=== PATIENT | female | born 1935 | race Hispanic/Latino ===

== ENCOUNTER 2017-12-23 16:52 | Inpatient (IN) | payer MEDICARE ==
[2017-12-23] MEDS ORDERED: SODIUM CHLORIDE FLUSH SYRINGE 10 ML IV PRN (17:01)
[2017-12-23 20:37] LABS: BUN/Creatinine Ratio 13; Blood Urea Nitrogen 10 mg/dL (7-17); Hemolysis Index 0
[2017-12-23 20:50] LABS: Hematocrit 26.1 % (30.3-42.9); Hemoglobin 7.7 gm/dl (10.1-14.3); Mean Corpuscular HGB Conc 30 % (30-34); Mean Corpuscular Volume 78 fl (79-97); Platelet Count 155 K/mm3 (140-440); Red Blood Count 3.35 M/mm3 (3.65-5.03)
[2017-12-23 20:55] LABS: Mean Corpuscular Hemoglobin 23 pg (28-32); Red Cell Distribution Width 20.5 % (13.2-15.2)
[2017-12-23] MEDS ORDERED: NACL 0.9% 500 ML 500 ML IV ONE (21:00)
[2017-12-23 21:57] LABS: Basophils % (Manual) 0 % (0.0-1.8); Eosinophils % (Manual) 0 % (0.0-4.3); Total Cells Counted 100
[2017-12-23 22:05] LABS: RBC Morphology Normal
[2017-12-23] MEDS: SODIUM CHLORIDE FLUSH SYRINGE 10 ML IV SCH (23:33)
--- NOTE | 2017-12-24 07:16 | History and Physical Report ---
History of Present Illness Date of admission: 12/23/17 19:32 Chief complaint: I feel weak History of present illness: 82 YO Female currently on Hospice Care with Severe Malnitrition, Breast Cancer, Mantle Cell Lymphoma, Chronic Respiratory Failure on 3L Home Oxygen, Nicotine Dependence, GERD, Peripheral Neuropathy, Chronic Pain, Symptomatic Anemia admitted directly to medical floor. Pt found to have progressive weakness and admitted for blood transfusion. Pt seen and evaluated upon arrival and found to have symptomatic anemia and respiratory failure. Pt placed on supplemental oxygen. Past History Past Medical History: cancer, other (malnutrition, respiratory failure) Past Surgical History: No surgical history, Other (reviewed) Social history: , lives with family, smoking Family history: cancer, hypertension Medications and Allergies Allergies Allergy/AdvReac Type Severity Reaction Status Date / Time No Known Allergies Allergy Verified 12/24/17 03:15 Active Meds: Active Medications Sodium Chloride (Sodium Chloride Flush Syringe 10 Ml) 10 ml IV BID JUAN Last Admin: 12/23/17 23:33 Dose: 10 ml Sodium Chloride (Sodium Chloride Flush Syringe 10 Ml) 10 ml IV PRN PRN PRN Reason: LINE FLUSH Review of Systems Constitutional: weakness, malaise, lethargy, no weight loss, no weight gain, no fever, no chills Ears, nose, mouth and throat: no ear pain, no ear discharge, no tinnitis, no decreased hearing, no nose pain, no nasal congestion, no nasal discharge Cardiovascular: shortness of breath, no chest pain, no orthopnea, no palpitations Respiratory: no cough, no cough with sputum, no excessive sputum, no hemoptysis Gastrointestinal: no nausea, no vomiting, no diarrhea, no constipation Genitourinary Female: no pelvic pain, no flank pain, no menorrhagia, no dysuria , no urinary frequency, no urgency Rectal: no pain, no incontinence, no bleeding Musculoskeletal: no neck stiffness, no neck pain, no shooting arm pain, no arm numbness/tingling Integumentary: no pruritis, no redness, no sores, no wounds, no jaundice Neurological: no paralysis, no weakness, no parathesias, no numbness, no tingling, no seizures Psychiatric: no memory loss, no change in sleep habits, no sleep disturbances, no insomnia, no hypersomnia, no change in appetite, no change in libido Endocrine: no cold intolerance, no heat intolerance, no polyphagia, no excessive thirst, no polydipsia, no polyuria, no nocturia Hematologic/Lymphatic: no easy bruising, no easy bleeding Allergic/Immunologic: no urticaria, no allergic rhinitis, no wheezing Exam - Constitutional Vitals: Temp Pulse Resp BP Pulse Ox 98.4 F 61 24 131/68 93 12/24/17 06:59 12/24/17 06:59 12/24/17 06:59 12/24/17 06:59 12/24/17 06:59 General appearance: Present: mild distress, cachectic - EENT Eyes: Present: PERRL ENT: hearing intact, clear oral mucosa - Neck Neck: Present: supple, normal ROM - Respiratory Respiratory effort: labored Respiratory: bilateral: diminished - Cardiovascular Heart Sounds: Present: S1 & S2. Absent: rub, click - Extremities Extremities: pulses symmetrical, No edema Peripheral Pulses: within normal limits - Abdominal General gastrointestinal: Present: soft, non-tender, non-distended, normal bowel sounds Female genitourinary: Present: normal - Integumentary Integumentary: Present: clear, dry, pale, decreased turgor - Musculoskeletal Musculoskeletal: generalized weakness - Psychiatric Psychiatric: appropriate mood/affect, intact judgment & insight - Neurologic Neurologic: CNII-XII intact, moves all extremities Results - Labs CBC & Chem 7: 12/23/17 20:04 12/23/17 20:04 Labs: Abnormal lab results 12/23/17 12/23/17 12/23/17 Range/Units 20:04 20:04 20:04 WBC 228.9 H* (4.5-11.0) K/mm3 RBC 3.35 L (3.65-5.03) M/mm3 Hgb 7.7 L (10.1-14.3) gm/dl Hct 26.1 L (30.3-42.9) % MCV 78 L (79-97) fl MCH 23 L (28-32) pg RDW 20.5 H (13.2-15.2) % Seg Neuts % (Manual) 2.0 L (40.0-70.0) % Lymphocytes % (Manual) 95.0 H (13.4-35.0) % Lymphocytes # (Manual) 217.5 H (1.2-5.4) K/mm3 Monocytes # (Manual) 6.9 H (0.0-0.8) K/mm3 Chloride 95.6 L (98-107) mmol/L Carbon Dioxide 33 H (22-30) mmol/L Crossmatch See Detail Assessment and Plan - Patient Problems (1) Mantle cell lymphoma Current Visit: Yes Status: Acute Qualifiers: Lymphoma site: intra-abdominal nodes Qualified Code(s): C83.13 - Mantle cell lymphoma, intra-abdominal lymph nodes Plan to address problem: AND/DNR, Pain control, comfort care (2) Symptomatic anemia Current Visit: Yes Status: Acute Plan to address problem: PRBC transfusion, CBC (3) Severe malnutrition Current Visit: Yes Status: Acute Plan to address problem: encourage increases protein intake, (4) Respiratory failure Current Visit: Yes Status: Acute Qualifiers: Chronicity: acute on chronic Plan to address problem: Supplemental oxygen, nebulizer therapy prn, NIPPV as clinically indicated, pain control, (5) DVT prophylaxis Current Visit: Yes Status: Acute Plan to address problem: SCD to BLE while in bed
[2017-12-24] MEDS: SODIUM CHLORIDE FLUSH SYRINGE 10 ML IV SCH (09:54)
--- NOTE | 2017-12-24 12:01 | Discharge Summary ---
Providers - Providers Date of Admission: 12/23/17 19:32 Attending physician: KATH LIZ Hospitalization Hospital course: 82 YO Female with Symptomatic anemia, Mantle Cell Lymphoma, Chronic respiratory failure admitted for symptomatic anemia and acute on chronic respiratory failure. Pt treated with supplemental oxygen, and PRBC transfusion with improvement in symptoms. Pt medically optimized and back to usual state of health. Pt seen and evaluated and found to have no acute changes in physical exam. Pt poor prognosis and discharged home under home hospice care under care of hospice medical dir. 35 minutes dedicated to patient discharge and education. Disposition: DC-50 TO HOSPICE (HOME) - Discharge Diagnoses (1) Mantle cell lymphoma Status: Acute Qualifiers: Lymphoma site: intra-abdominal nodes Qualified Code(s): C83.13 - Mantle cell lymphoma, intra-abdominal lymph nodes (2) Symptomatic anemia Status: Acute (3) Severe malnutrition Status: Acute (4) Respiratory failure Status: Acute Qualifiers: Chronicity: acute on chronic (5) DVT prophylaxis Status: Acute Core Measure Documentation - Palliative Care Palliative Care/ Comfort Measures: Hospice Care - Core Measures Any of the following diagnoses?: none Exam - Constitutional Vitals: Temp Pulse Resp BP Pulse Ox 98.2 F 68 22 128/66 94 12/24/17 08:26 12/24/17 08:55 12/24/17 08:55 12/24/17 08:26 12/24/17 08:55 General appearance: Present: cachectic - EENT Eyes: Present: PERRL ENT: hearing intact, clear oral mucosa - Neck Neck: Present: supple, normal ROM - Respiratory Respiratory effort: normal Respiratory: bilateral: diminished, rhonchi - Cardiovascular Heart Sounds: Present: S1 & S2. Absent: rub, click - Extremities Extremities: pulses symmetrical, No edema Peripheral Pulses: within normal limits - Abdominal General gastrointestinal: Present: soft, non-tender, non-distended, normal bowel sounds Female genitourinary: Present: normal - Integumentary Integumentary: Present: clear, warm, dry - Musculoskeletal Musculoskeletal: gait normal, strength equal bilaterally - Psychiatric Psychiatric: appropriate mood/affect, intact judgment & insight - Neurologic Neurologic: CNII-XII intact, moves all extremities Plan Follow up with: MARY BRUNNER DR [Other] - 7 Days
[2017-12-24 13:44] VITALS: BP 123/60
== END 2017-12-24 14:37 | disposition hospice, home (50) | DRG 811 ==
LOC: 2B-ACE 16:52 → UNDOADMIN 16:52 → 2B-ACE 19:32
PROVIDERS: ADMIT Internal Medicine; ATTEND Internal Medicine
PROC: 30233N1 Transfusion of Nonautologous Red Blood Cells into Peripheral Vein, Percutaneous Approach (ICD-10-PCS; principal; 2017-12-24)
DX: D64.9 Anemia, unspecified (principal); J96.20 Acute and chronic respiratory failure, unspecified whether with hypoxia or hypercapnia; E43 Unspecified severe protein-calorie malnutrition; C83.10 Mantle cell lymphoma, unspecified site; Z68.1 Body mass index [BMI] 19.9 or less, adult; K21.9 Gastro-esophageal reflux disease without esophagitis; G62.9 Polyneuropathy, unspecified; F17.200 Nicotine dependence, unspecified, uncomplicated; G89.29 Other chronic pain; Z80.9 Family history of malignant neoplasm, unspecified; Z82.49 Family history of ischemic heart disease and other diseases of the circulatory system
CPT/HCPCS: 36415; 80048; 85007; 85025; 86850; 86900; 86901; 86920; P9016